=== PATIENT | male | born 1950 | race Caucasian/White ===

== ENCOUNTER → 2018-04-13 | Outpatient (CLI) | payer MEDICARE ==
--- NOTE | 2018-04-13 12:15 | XR ---
EXAMINATION TYPE: XR cervical spine limited DATE OF EXAM: 04/13/2018 COMPARISON: None HISTORY: Cervical dysfunction, left leg and left sided neck TECHNIQUE: Three-view cervical spine FINDINGS: The prevertebral space is normal. There is narrowing of disc height C3-4 posteriorly at C4- 5 and diffusely through the C5-6 C6-7 levels. Posterior spinal lamellar line is intact. Note is made of there may be some minimal vascular calcification within the left carotid system lateral to the cer vical spine. The odontoid is visualized appears normal. IMPRESSION: 1. Degenerative disc changes. 2. Very minimal left carotid artery calcification is not excluded.
--- NOTE | 2018-04-13 12:40 | XR ---
Lumbar spine HISTORY: Lumbar dysfunction 3 views of the lumbar spine Lumbar vertebral bodies show preserved height, alignment, and bone mineralization. There is multileve l spondylosis. Loss of disc height associated vacuum phenomenon present at multiple levels. Sclerosis present in the posterior elements of the lower lumbar spine. There is a mild dextroscoliosis. Questi on calcification superimposed over the right sacral ala on the frontal view. Possible bone island. IMPRESSION: Degenerative disc disease and facet arthropathy, spinal curvature. Additional findings ab ove.
== END | disposition home or self-care (01) ==
LOC: RADXRMAIN 11:43
PROVIDERS: ATTEND Chiropractor
DX: M47.812 Spondylosis without myelopathy or radiculopathy, cervical region (principal); M51.36 Other intervertebral disc degeneration, lumbar region; M46.96 Unspecified inflammatory spondylopathy, lumbar region; M41.86 Other forms of scoliosis, lumbar region
CPT/HCPCS: 72040; 72100